=== PATIENT | female | born 1985 | race Caucasian/White ===

== ENCOUNTER 2019-06-01 20:57 | Inpatient (IN) | payer OTHER ==
[~2019-06-01] VITALS: Ht 160 cm; Wt 82.0 kg
[2019-06-01] MEDS ORDERED: IBUP-2070 PO (21:20)
[2019-06-01] MEDS ORDERED: DOCU-275 PO (21:20)
[2019-06-01] MEDS ORDERED: MOM30 PO (21:20)
[2019-06-01] MEDS ORDERED: ASPI-1192 PO (21:20)
[2019-06-01 21:58] LABS: BASOPHILS % (AUTO) 0.3 % (0.0-2.0); EOSINOPHILS % (AUTO) 0.6 % (1.0-6.0); HEMATOCRIT 36.9 % (36-46); HEMOGLOBIN 11.9 g/dL (12.0-16.0); LYMPHOCYTES # (AUTO) 1.4 K/uL (1.0-4.8); LYMPHOCYTES % (AUTO) 27.2 % (22.0-44.0); MEAN CORPUSCULAR HEMOGLOBIN 23.9 pg (26.0-34.0); MEAN CORPUSCULAR HGB CONC 32.3 G/dL (31.0-37.0); MEAN CORPUSCULAR VOLUME 74 fL (80-100); MONOCYTES # (AUTO) 0.5 K/uL (0.1-1.0); MONOCYTES % (AUTO) 10.3 % (2.0-9.0); NEUTROPHILS # (AUTO) 3.3 K/uL (1.8-7.7); NEUTROPHILS % (AUTO) 61.6 % (40.0-70.0); PLATELET COUNT (AUTO) 188 K/uL (150-450); RED BLOOD CELL COUNT(AUTO) 4.98 MIL/uL (4.00-5.20); RED CELL DISTRIBUTION WIDTH 15.6 % (11.5-14.5)
[2019-06-01 22:06] LABS: ANION GAP 9 mmol/L (8-16); CALCIUM, TOTAL 8.4 mg/dL (8.8-10.5); CARBON DIOXIDE 28 mmol/L (22-29); CHLORIDE 103 mmol/L (98-107); GLOMERULAR FILTR. RATE CALC > 60 mL/min (>60); GLUCOSE,RANDOM 83 mg/dL (70-110); POTASSIUM 3.2 mmol/L (3.5-5.1); SODIUM SERUM 140 mmol/L (136-145); UREA NITROGEN, BLOOD 6 mg/dL (7-18)
[2019-06-01] MEDS ORDERED: POTASSIUM CHLORIDE 20 MEQ ER TABLET PO ONE (22:15)
[2019-06-01 22:19] LABS: ALANINE AMINOTRANSFERASE 18 U/L (12-78); ALBUMIN 3.9 g/dL (3.4-5.0); ALKALINE PHOSPHATASE 51 U/L (46-116); AMPHET/METH SCREEN,URINE NEGATIVE (NEGATIVE); ASPARTATE AMINOTRANSFERASE 12 U/L (15-37); BARBITURATE SCREEN, URINE NEGATIVE (NEGATIVE); BENZODIAZEPINES SCREEN,URINE NEGATIVE (NEGATIVE); BILIRUBIN,TOTAL 0.4 mg/dL (0.1-1.0); CANNABINOID SCREEN,URINE NEGATIVE (NEGATIVE); COCAINE SCREEN,URINE NEGATIVE (NEGATIVE); HCG,QUANTITATIVE < 1 mIU/mL (0-6); METHADONE SCREEN, URINE NEGATIVE (NEGATIVE); OPIATE SCREEN,URINE NEGATIVE (NEGATIVE); PHENCYCLIDINE SCREEN,URINE NEGATIVE (NEGATIVE); TOTAL PROTEIN, SERUM 7.2 g/dL (6.4-8.2)
[2019-06-02] VITALS: BP 111/77
[2019-06-02] MEDS ORDERED: 0.9% SODIUM CHLORIDE 10 ML SYRINGE IVP PRN
[2019-06-02] MEDS ORDERED: ONDANSETRON HCL 4 MG/2 ML VIAL IVP PRN
[2019-06-02] MEDS ORDERED: ACETAMINOPHEN 325 MG TABLET PO PRN
[2019-06-02 07:45] VITALS: BP 100/68
[2019-06-02 11:55] VITALS: BP 100/73
[2019-06-02 15:00] VITALS: BP 109/74
[2019-06-02 19:30] VITALS: BP 107/59
[2019-06-02] MEDS: MIRTAZAPINE 15 MG TABLET PO SCH (20:15)
[2019-06-02 23:30] VITALS: BP 109/61
[2019-06-03 04:15] VITALS: BP 107/65
[2019-06-03 07:26] VITALS: BP 111/64
[2019-06-03 11:38] VITALS: BP 115/79
[2019-06-03 15:03] VITALS: BP 106/70
[2019-06-03] MEDS ORDERED: ACETAMINOPHEN 325 MG TABLET PO PRN (20:00)
[2019-06-03] MEDS: MIRTAZAPINE 15 MG TABLET PO SCH (20:10)
[2019-06-03 20:13] VITALS: BP 103/66
[2019-06-03] MEDS ORDERED: INFLUENZA VIRUS VACCINE QVS 2019-20 (3YR+)/PF 60 MCG/0.5 ML SYRINGE IM ONE (21:30)
[2019-06-04 00:21] VITALS: BP 99/55
[2019-06-04 05:05] VITALS: BP 98/67
[2019-06-04 08:40] VITALS: BP 101/67
[2019-06-04 12:06] VITALS: BP 107/66
[2019-06-04] MEDS ORDERED: MAGNESIUM HYDROXIDE SUSPENSION 30 ML UDCUP PO ONE (15:00)
[2019-06-04 16:02] VITALS: BP 111/67
[2019-06-04] MEDS ORDERED: DOCU100C33 PO (16:35)
[2019-06-04] MEDS ORDERED: MIRT15 PO (16:49)
[2019-06-04] MEDS ORDERED: ACET-784 PO (17:27)
== END 2019-06-04 18:40 | DRG 885 ==
LOC: EMS 21:02 → 6S 22:37
PROVIDERS: ADMIT Hospitalist; ATTEND Hospitalist
DX: F33.3 Major depressive disorder, recurrent, severe with psychotic symptoms (principal); R45.851 Suicidal ideations; E87.6 Hypokalemia; D64.9 Anemia, unspecified; Z23 Encounter for immunization; S09.90XA Unspecified injury of head, initial encounter; X58.XXXA Exposure to other specified factors, initial encounter; Y93.89 Activity, other specified; Y92.89 Other specified places as the place of occurrence of the external cause; Y99.8 Other external cause status; R55 Syncope and collapse; Z91.5 Personal history of self-harm
CPT/HCPCS: 70450; 90686; 93005; G0480